=== PATIENT | female | born 1985 | race Two or more races ===

== ENCOUNTER → 2025-01-15 | Outpatient (CLI) | payer BC, SELFPAY ==
--- NOTE | 2025-01-15 09:00 | XR_ITS ---
Examination: Abdomen sonogram, complete Date and time of exam: January 15, 2025, 0940 hours INDICATIONS: Preop gastric sleeve surgery. Technique: Multiple real-time grayscale transabdominal sonographic images of the abdomen have been obtained. Findings: Normal gallbladder Normal common bile duct 0.3 cm Pancreatic head 3.2 cm Mid and distal aorta visualized not enlarged Liver 14.4 cm fatty infiltration Normal hepatopetal portal venous flow Patent IVC Right kidney 11.4 cm renal cortex 1.6 cm Left kidney 10.7 cm renal cortex 2.0 cm Spleen 9.8 cm IMPRESSION: Normal gallbladder Normal common bile duct
--- NOTE | 2025-01-15 10:21 | XR_ITS ---
EXAM: Single contrast upper GI exam INDICATION: Prebariatric surgery DATE: 01/15/2025, 10:34 a.m. Fluoroscopy time: 2.3 minutes Dose: 2-6.72 mGy PROCEDURE: Single contrast barium esophagram performed in multiple positions and multiple projections. Liquid barium contrast passes normally from the oropharynx through the esophagus into the stomach and duodenum without evidence of delay. Normal position and alignment of the duodenal C-loop. No evidence of esophageal, gastric or duodenal mass, stricture, filling defect or diverticulum. No evidence of hiatal hernia or gastroesophageal reflux demonstrated during the exam. IMPRESSION: Negative single contrast barium upper GI exam.
== END | disposition home or self-care (01) ==
PROVIDERS: PCP Surgery; Referring Provider Surgery; Visit Provider Surgery
DX: E66.01 Morbid (severe) obesity due to excess calories (principal); E88.810 Metabolic syndrome; E88.819 Insulin resistance, unspecified
CPT/HCPCS: 74240; 76700; A4649

== ENCOUNTER 2025-02-04 09:20 | Day surgery (SDC) | payer BC, SELFPAY ==
[2025-02-01 10:53] LABS: HCG Qualitative,Urine Negative
[2025-02-04 09:57] VITALS: BMI 40.3
[2025-02-04 10:05] VITALS: BP 118/82; PULSE 95; RESP 14; TEMP 36.7; O2SAT 97
[2025-02-04 10:20] LABS: Anion Gap 10 (7-16); BUN/Creatinine Ratio 9 Ratio (12-20); Blood Urea Nitrogen 7 mg/dL (9-23); Calcium 8.3 mg/dL (8.3-10.6); Carbon Dioxide 25.0 mMol/L (20.0-31.0); Chloride 107 mMol/L (98-107); Creatinine (Component) 0.8 mg/dL (0.6-1.3); Estimated Creatinine Clearance 112.5 mL/min (>60); Glucose 98 mg/dL (74-106); Osmolality,Calculated 281 (275-295); Potassium 4.0 mMol/L (3.4-5.1); Sodium 142 mMol/L (136-145); eGFR > 60 See Note
[2025-02-04] MEDS: RINGERS LACTATED 500 ML 500 ML 20 ML IV (11:45)
[2025-02-04 11:55] VITALS: BP 130/98; PULSE 105; RESP 13; TEMP 36.6; O2SAT 97
[2025-02-04 12:05] VITALS: BP 131/95; PULSE 95; RESP 14; O2SAT 97
[2025-02-04 12:15] VITALS: BP 145/95; PULSE 109; RESP 15; O2SAT 97
[2025-02-04 12:25] VITALS: BP 117/87; PULSE 102; RESP 15; O2SAT 96
== END 2025-02-04 12:45 | disposition home or self-care (01) ==
PROVIDERS: Anesthesiology; PCP Surgery; Referring Provider Specialist; Visit Provider Specialist
PROC: (CPT 43239; principal; 2025-02-04 09:15)
DX: K22.10 Ulcer of esophagus without bleeding (principal); M79.7 Fibromyalgia; M06.9 Rheumatoid arthritis, unspecified; G47.30 Sleep apnea, unspecified; M45.9 Ankylosing spondylitis of unspecified sites in spine; K29.50 Unspecified chronic gastritis without bleeding
CPT/HCPCS: 43239; 36415; 80048; 81025; A4649; J7120